=== PATIENT | male | born 2000 | race Caucasian/White ===

== ENCOUNTER 2022-10-20 08:31 | Emergency (ER) | payer OTHER, SELFPAY ==
--- NOTE | 2022-10-20 08:34 | ED.URI ---
HPI - URI/Sore Throat General Chief Complaint: Upper Respiratory Infection Stated Complaint: cough, congestion, rt ear pain/drainage Time Seen by Provider: 10/20/22 08:34 Source: patient Mode of arrival: ambulatory Limitations: no limitations History of Present Illness HPI Narrative: Renny is a 21-year-old male patient presenting to the clinic today with complaints of cough, congestion, right ear pain/drainage x1 week. He reports he thinks he has a sinus infection. He has a lot of sinus pressure and congestion and states that last night his ears started hurting and he noticed some drainage coming from his ear. MD elicited complaint: cough, nasal congestion, sinus pain and other (Ear pain/drainage) Related Data Allergies Allergy/AdvReac Type Severity Reaction Status Date / Time No Known Allergies Allergy Verified 10/20/22 08:44 Review of Systems Review of Systems: Pertinent positives per HPI. Patient denies any fever, chills, rash, headache, visual changes, dizziness, shortness of breath, chest pain, palpitations, nausea, vomiting, diarrhea, constipation, abdominal pain, or any urinary issues. [facility] Family History Family History Father Family history of hypercholesterolemia Hypertension Patient's father is in good health Mother Hypertension Patient's mother is in good health Social History Social History Smoking status: Never smoker Alcohol intake: never Comments At the time of my signature, I reviewed and agree with the nursing past medical, surgical, social, and family history. There is no relevant family history pertinent to the patient complaint. Exam Narrative: General: Well-developed, well nourished, in no apparent distress Head: Normocephalic, atraumatic Eyes: Pupils equally round and reactive to light bilaterally, EOM intact, sclera and conjunctive clear, no discharge, lids normal Ears: Left TMs intact and dull, right TM intact, bulging, red, ear canals clear, no drainage, grossly hearing normal. Nose: Nares patent, green nasal discharge, severe inflammation, maxillary sinus tenderness. Mouth: Oral pharynx without lesions or masses, good dentition, MMM. Oropharynx red Neck: Supple, trachea midline, no enlargement of anterior or posterior cervical nodes, no thyroid masses or goiter palpable. Cardio: Regular rate and rhythm, s1 and s2 normal, no murmur appreciated. Resp: Clear to auscultation bilaterally, no rhonchi, rales, wheezing or rubs Skin: Temperance, warm, dry, peeling skin on bilateral palms Course Course Emergency Course: Portions of this record may have been created with voice recognition software. Level of Care: Express Care Visit Vital Signs Vital signs: Vital Signs Temperature 36.5 C 10/20/22 08:45 Pulse Rate 76 10/20/22 08:45 Respiratory Rate 16 10/20/22 08:45 Blood Pressure 132/86 10/20/22 08:45 Pulse Oximetry 100 10/20/22 08:45 Temperature 36.5 C 10/20/22 08:45 Pulse Rate 76 10/20/22 08:45 Respiratory Rate 16 10/20/22 08:45 Blood Pressure 132/86 10/20/22 08:45 Pulse Oximetry 100 10/20/22 08:45 Vital signs reviewed MDM - URI/Sore Throat MDM Narrative Medical decision making narrative: At the time of visit patient is resting comfortably on the exam table. I suspect patient has otitis media with a sinus infection. Prescription for Augmentin was sent to the pharmacy. Supportive measures were discussed with the patient he voiced understanding of discharge instructions and agrees to treatment plan. Patient is also requesting refill of his triamcinolone ointment as he has history of dermatitis to hands. Differential Diagnosis Differential diagnosis: Likely upper respiratory infection, otitis media, sinusitis, viral infection, bronchitis, influenza, pharyngitis and other (COVID) Discharge Plan Discharge Clini
[2022-10-20 08:45] VITALS: BP 132/86; PULSE 76; RESP 16; TEMP 36.5; O2SAT 100
== END 2022-10-20 08:59 | disposition home or self-care (01) ==
PROVIDERS: Emergency Provider Nurse Practitioner Family; PCP Emergency Medicine
DX: H66.91 Otitis media, unspecified, right ear (principal); J01.00 Acute maxillary sinusitis, unspecified; L30.9 Dermatitis, unspecified
CPT/HCPCS: 99213; G0463